=== PATIENT | male | born 1945 | race Caucasian/White ===

== ENCOUNTER → 2017-05-18 | Day surgery (SDC) | payer MEDICARE, BC ==
[~2017-05-18] MED LIST: AMOXICILLIN500 M1 PO; ASPIRIN EC81 M1 PO; ASPIRIN PO; COUMADIN PO; COUMADIN6 MG PO; DETROL LA PO; DICLOFENAC PO; ESCITALOPRAM OX10 MG PO; LEXAPRO20 MG PO; LIPO-FLAVONOID1 EACH PO; NORCO 10-325 TA1 TAB PO; OMEPRAZOLE40 MG PO; PAIN RELIEF EX500 MG PO; VIT B PO
--- NOTE | ~2017-05-18 | OR ---
Unit #: [id number] #: [id number] Patient: CHARLINE HUTCHINSON [id number] [address] [place], [place] [address] [id number] O MR#: [id number] NAME: CHARLINE HUTCHINSON ROOM: Date of Procedure: 05/18/2017 Admission Date: 05/18/2017 Surgeon: Wolfgang Gaviria M.D. : 1945 Attending Physician: Wolfgang Gaviria M.D. Primary Care Physician: Satnam Martinez M.D. OPERATIVE REPORT PREOPERATIVE DIAGNOSIS Colorectal cancer screening in an average-risk patient. PROCEDURES PERFORMED Colonoscopy and biopsy. POSTOPERATIVE DIAGNOSES 1. Single sessile polyp in the proximal ascending colon. This was removed using cold biopsy forceps. 2. Mild sigmoid and descending colon diverticulosis. 3. Rest of the examination up to cecum and terminal ileum was normal. The quality of the prep was excellent. RECOMMENDATIONS 1. Follow up results of polyp histology. 2. Consider repeat colonoscopy in 5 years. SEDATION USED MAC. DESCRIPTION OF PROCEDURE Following detailed explanation of potential risks and complications of a colonoscopy, namely perforation, bleeding, and complications related to sedation, the patient was brought to GI lab and laid in the left lateral decubitus position. A digital rectal examination was performed, which was normal. Lubricated tip of the Olympus video colonoscope was inserted through the anus and advanced under direct vision. The scope was advanced and passed up to sigmoid into descending colon. Scant small diverticula were noted in this area. The scope tip was then navigated all the way up to cecum with visualization of the ileocecal valve and appendiceal orifice. Preparation was excellent with good visualization and photodocumentation was obtained. Last several inches of terminal ileum also visualized after intubation of the ileocecal valve and appeared normal. Successive segments of the colonic mucosa were examined upon withdrawal and appeared unremarkable except for a single sessile polyp in the proximal ascending colon. This was about 4 mm in size. It was removed using cold biopsy forceps. No additional polyps noted. Other than the left-sided diverticula, no additional abnormalities were found. The patient did not have any hemorrhoids at anal verge. The scope was then withdrawn. The patient returned to the recovery area. He tolerated the procedure without any postprocedure complications. Unit #: [id number] #: [id number] Patient: CHARLINE HUTCHINSON Dictated by... Malaika Weaver/anayeli TD: 05/18/2017 11:14 JOB #: [id number] CC: Satnam Martinez M.D. OPERATIVE REPORT Page 1 of 1 X Wolfgang Gaviria MD X PROCEDURE OPERATIVE NOTE
== END | disposition home or self-care (01) ==
LOC: COPS 05-04 13:00
DX: Z12.11 Encounter for screening for malignant neoplasm of colon (principal); D12.2 Benign neoplasm of ascending colon; K57.30 Diverticulosis of large intestine without perforation or abscess without bleeding; K21.9 Gastro-esophageal reflux disease without esophagitis; G47.30 Sleep apnea, unspecified; Z86.711 Personal history of pulmonary embolism; Z85.46 Personal history of malignant neoplasm of prostate; Z79.82 Long term (current) use of aspirin; Z79.899 Other long term (current) drug therapy; Z96.651 Presence of right artificial knee joint; Z98.890 Other specified postprocedural states
CPT/HCPCS: 88305